=== PATIENT | male | born 1970 | race Caucasian/White ===

== ENCOUNTER 2018-04-22 10:12 | Day surgery (SDC) | payer BC ==
[~2018-04-22] VITALS: Ht 175.3 cm; Wt 104.2 kg
[2018-04-22] VITALS (8 sets, daily range): BP systolic 86–133; BP diastolic 53–82; PULSE 62–86; TEMP 98.4
[2018-04-22] MEDS ORDERED: ZESTRIL 5MG5 MG PO (10:24)
[2018-04-22] MEDS ORDERED: TOPROL XL 50MG50 MG PO (10:25)
[2018-04-22] MEDS ORDERED: PROTONIX 40MG T40 MG PO (10:26)
[2018-04-22] MEDS ORDERED: NORVASC 5MG5 MG/TAB PO (10:26)
[2018-04-22] MEDS ORDERED: ASPI325T6 PO (10:27)
[2018-04-22 10:41] LABS: HEMATOCRIT 44.4 % (42.0-52.0); HEMOGLOBIN 15.6 g/dl (13.5-18.0); MEAN CELL VOLUME 95 fl (80.0-100.0); MEAN CORPUSCULAR HEMOGLOBIN 33 pg (27.0-31.0); MEAN CORPUSCULAR HGB CONC 35 g/dl (33.0-37.0); MEAN PLATELET VOLUME 8.9 fl (7.4-10.4); PLATELET COUNT 262 K/mm3 (130-400); REDCELL DISTRIBUTION WIDTH-CV 13.8 % (11.5-14.5)
[2018-04-22 10:51] LABS: INR 0.9 (0.8-3.0); PROTHROMBIN TIME 10.5 SECONDS (9.7-12.8)
[2018-04-22 10:55] LABS: CALCIUM 9.5 mg/dL (8.4-10.2); CREATININE, serum 1.54 mg/dL (0.66-1.25); POTASSIUM 4.3 mmol/L (3.4-5.0)
[2018-04-22] MEDS ORDERED: IMDUR 30MG30 MG/TAB PO (17:16)
== END 2018-04-22 17:55 | disposition home or self-care (01) ==
LOC: COL.CAR 10:12
PROVIDERS: Internal Medicine Cardiovascular Disease
DX: I25.10 Atherosclerotic heart disease of native coronary artery without angina pectoris (principal); I47.1 Supraventricular tachycardia; I10 Essential (primary) hypertension; I36.1 Nonrheumatic tricuspid (valve) insufficiency; F17.210 Nicotine dependence, cigarettes, uncomplicated; Z68.34 Body mass index [BMI] 34.0-34.9, adult; Z79.82 Long term (current) use of aspirin; Z82.49 Family history of ischemic heart disease and other diseases of the circulatory system; Z82.3 Family history of stroke; Z79.1 Long term (current) use of non-steroidal anti-inflammatories (NSAID)
CPT/HCPCS: C1769; C1887; J1200; J1644; J2250; J3010; Q9967

== ENCOUNTER 2018-07-14 11:44 | Inpatient (IN) | payer BC ==
[~2018-07-14] VITALS: Ht 177.8 cm; Wt 111.6 kg
[~2018-07-14 11:44] MED LIST: ASPI325T6 PO; IMDUR 30MG30 MG/TAB PO; NORVASC 5MG5 MG/TAB PO; PROTONIX 40MG T40 MG PO; TOPROL XL 50MG50 MG PO; ZESTRIL 5MG5 MG PO
[2018-07-14 13:39] VITALS: BP 131/86; PULSE 82; TEMP 98.4
[2018-07-14] MEDS ORDERED: TYLENOL 500MG500 MG PO (14:36)
[2018-07-14 15:07] VITALS: BP 118/82; PULSE 71; TEMP 98.1
[2018-07-14] MEDS ORDERED: LIPITOR20 MG PO (15:27)
[2018-07-14 16:25] LABS: BASO # 0.1 (0.0-0.2); BASO % 0.7 % (0.0-2.0); EOS # 0.3 (0.0-0.7); GRAN # 5.6 (1.4-6.5); GRAN % 60.1 % (42.2-75.2); HEMATOCRIT 43.2 % (42.0-52.0); HEMOGLOBIN 14.5 g/dl (13.5-18.0); LYMPH # 2.7 (1.2-3.4); LYMPH % 29.2 % (20.0-51.0); MEAN CELL VOLUME 92 fl (80.0-100.0); MEAN CORPUSCULAR HEMOGLOBIN 31 pg (27.0-31.0); MEAN CORPUSCULAR HGB CONC 34 g/dl (33.0-37.0); MEAN PLATELET VOLUME 8.9 fl (7.4-10.4); MONO # 0.6 (0.1-0.6); MONO % 6.5 % (1.7-9.3); PLATELET COUNT 278 K/mm3 (130-400); RED BLOOD COUNT 4.69 M/mm3 (4.20-5.60); REDCELL DISTRIBUTION WIDTH-CV 12.4 % (11.5-14.5)
[2018-07-14 16:30] LABS: INR 0.9 (0.8-3.0); PROTHROMBIN TIME 10.2 SECONDS (9.7-12.8)
[2018-07-14 16:37] LABS: ALANINE AMINOTRANSFERASE 72 U/L (21-72); ALBUMIN 4.2 gm/dL (3.5-5.0); ALKALINE PHOSPHATASE 77 U/L (50-136); ANION GAP 5 mmol/L (7-16); AST,SGOT 43 U/L (15-37); BILIRUBIN,TOTAL 0.6 mg/dL (0.0-1.0); BLOOD UREA NITROGEN 20 mg/dL (9-20); CALCIUM 9.2 mg/dL (8.4-10.2); CARBON DIOXIDE 24 mmol/L (22-30); CHLORIDE 110 mmol/L (98-107); CREATININE, serum 1.41 mg/dL (0.66-1.25); GLUCOSE 128 mg/dL (74-106); MAGNESIUM 1.9 mg/dL (1.6-2.3); POTASSIUM 4.4 mmol/L (3.4-5.0); SODIUM 139 mmol/L (137-145); TOTAL PROTEIN 7.2 gm/dL (6.4-8.2)
[2018-07-14 17:06] LABS: THYROID STIMULATING HORMONE 0.635 uIU/mL (0.465-4.680)
[2018-07-14 17:09] LABS: TROPONIN-I < 0.012 ng/mL (0.000-0.034)
[2018-07-14 21:10] VITALS: BP 127/84; PULSE 84; TEMP 98.4
[2018-07-15 00:35] VITALS: BP 114/75; PULSE 69; TEMP 97.6
[2018-07-15 04:20] VITALS: BP 128/80; PULSE 70; TEMP 97.8
[2018-07-15 07:56] VITALS: BP 111/58; PULSE 60; TEMP 97.4
[2018-07-15 11:32] VITALS: BP 101/71; PULSE 71; TEMP 98.1
[2018-07-15 15:06] VITALS: BP 133/75; PULSE 65; TEMP 97.9
[2018-07-15 19:29] VITALS: BP 116/70; PULSE 69; TEMP 98.4
[2018-07-16 00:26] VITALS: BP 109/72; PULSE 61; TEMP 97.7
[2018-07-16 05:00] VITALS: BP 123/79; PULSE 62; TEMP 97.3
[2018-07-16 05:50] LABS: CALCIUM 9.4 mg/dL (8.4-10.2); CREATININE, serum 1.39 mg/dL (0.66-1.25); MAGNESIUM 1.8 mg/dL (1.6-2.3); POTASSIUM 4.2 mmol/L (3.4-5.0)
[2018-07-16 07:48] VITALS: BP 122/74; PULSE 62; TEMP 97.4
[2018-07-16] MEDS ORDERED: TYLENOL 500MG500 MG PO (08:08)
[2018-07-16] MEDS ORDERED: ELIQUIS 5MG PO (08:10)
[2018-07-16] MEDS ORDERED: BETAPACE 120MG120 MG PO (08:10)
== END 2018-07-16 13:40 | disposition home or self-care (01) | DRG 310 ==
LOC: MEDICAL 11:44
PROVIDERS: Internal Medicine Cardiovascular Disease
DX: I48.91 Unspecified atrial fibrillation (principal); Z79.01 Long term (current) use of anticoagulants; R09.02 Hypoxemia; I25.10 Atherosclerotic heart disease of native coronary artery without angina pectoris; I12.9 Hypertensive chronic kidney disease with stage 1 through stage 4 chronic kidney disease, or unspecified chronic kidney disease; N18.9 Chronic kidney disease, unspecified